=== PATIENT | female | born 1975 | race African-American/Black ===

== ENCOUNTER 2019-07-13 01:29 | Emergency (ER) | payer SELFPAY ==
[~2019-07-13] VITALS: Ht 165.1 cm; Wt 73.0 kg
[2019-07-13] MEDS ORDERED: ALPRAZOLAM 0.25 MG TABLET PO ONE (02:45)
[2019-07-13 03:46] VITALS: BP 126/85
== END 2019-07-13 03:47 | disposition home or self-care (01) ==
LOC: ER 01:29
DX: F41.9 Anxiety disorder, unspecified (principal)
CPT/HCPCS: 93005; 99284